=== PATIENT | female | born 2000 | race Hispanic/Latino ===

== ENCOUNTER 2022-04-29 00:04 | Emergency (ER) | payer OTHER, SELFPAY ==
[2022-04-29] MEDS ORDERED: Acetaminophen 500 MG TAB ONE (00:25)
[2022-04-29 00:45] LABS: #Monocytes 0.3 10x3/uL (0.0-1.1); #Neutrophils 7.6 10x3/uL (1.5-8.4); %Basophils 0.2 % (0.0-2.0); %Eosinophils 0.1 % (0.0-6.0); %Monocytes 3.8 % (0.0-10.0); %Neutrophils 86.6 % (40.0-75.0); Hemoglobin 13.4 g/dL (12.0-15.5); Mean Corpuscular HGB CONC 33.8 g/dL (32.0-36.0); Mean Corpuscular Hemoglobin 30.8 pg (27.0-33.0); Platelet Count 257 10x3/uL (150-450); RBC Distribution Width 12.3 % (11.5-14.5); Red Blood Cell (RBC) Count 4.35 10x6/uL (3.90-5.03); White Blood Cell (WBC) Count 8.8 10x3/uL (3.5-10.5)
[2022-04-29 00:47] LABS: Bilirubin Neg (Negative); Blood, Urine Negative (Negative); Clarity Clear (Clear); Glucose, Urine (Dipstick) Normal (Negative); Ketone, Urine 5 mg/dL (Negative); Leukocyte Negative (Negative); Nitrite Negative (Negative); Protein, Urine (Dipstick) Negative (Neg-Trace); Specific Gravity, Urine 1.015 (1.002-1.036); Urobilinogen Normal mg/dL (Less than 2)
[2022-04-29 01:00] LABS: ALT (SGPT) 19 U/L (8-55); AST (SGOT) 17 U/L (5-34); Alkaline Phosphatase 51 U/L (40-100); Anion Gap 15 mmol/L (10-20); BUN (Urea Nitrogen) 8 mg/dL (7.0-18.7); Bilirubin, Total 0.6 mg/dL (0.2-1.2); Calc. Creatinine Clearance 0 mL/min (70-130); Calcium 8.5 mg/dL (7.8-10.44); Carbon Dioxide 19 mmol/L (22-29); Chloride 105 mmol/L (98-107); Estimated GFR 134; Glucose 96 mg/dL (70-105); Potassium 3.6 mmol/L (3.5-5.1); Sodium 135 mmol/L (136-145)
[2022-04-29 01:19] LABS: SARS-CoV-2 NAA Rapid Test Not Detected (NotDetected)
== END 2022-04-29 01:37 | disposition home or self-care (01) ==
LOC: CSHERS 00:04
DX: B34.9 Viral infection, unspecified (principal); R53.81 Other malaise; M79.10 Myalgia, unspecified site; Z20.822 Contact with and (suspected) exposure to COVID-19
CPT/HCPCS: 80053; 81003; 85025; 96360; U0002

== ENCOUNTER 2022-06-10 11:01 | Emergency (ER) | payer BC, OTHER ==
[2022-06-10 12:00] LABS: Bilirubin Neg (Negative); Blood, Urine Negative (Negative); Clarity Clear (Clear); Glucose, Urine (Dipstick) Normal (Negative); Ketone, Urine Negative (Negative); Leukocyte 25 (Negative); Nitrite Negative (Negative); Protein, Urine (Dipstick) Negative (Neg-Trace); Urobilinogen Normal mg/dL (Less than 2)
[2022-06-10 12:09] LABS: Bacteria/HPF 3+ HPF (None Seen); RBC/HPF 0-3 HPF (0-3); WBC/HPF 0-3 HPF (0-3)
[2022-06-11 10:06] LABS: Chlamydia by PCR Not Detected (NotDetected); GC by PCR Not Detected (NotDetected)
== END 2022-06-10 13:45 | disposition home or self-care (01) ==
LOC: CSHERS 11:01
DX: O23.592 Infection of other part of genital tract in pregnancy, second trimester (principal); N98.9 Complication associated with artificial fertilization, unspecified; Z3A.18 18 weeks gestation of pregnancy
CPT/HCPCS: 76815; 81003; 81015; 87480; 87491; 87510; 87591; 87660

== ENCOUNTER 2022-08-23 02:22 | Day surgery (SDC) | payer BC, OTHER ==
[2022-08-23 02:51] VITALS: BMI 23.9
[2022-08-23] MEDS ORDERED: hydrALAZINE 20 MG/ML VIAL SLOW IVP PRN (03:30)
[2022-08-23 03:50] LABS: Bilirubin Neg (Negative); Blood, Urine Negative (Negative); Clarity Sl. Cloudy (Clear); Glucose, Urine (Dipstick) Normal (Negative); Ketone, Urine Negative (Negative); Leukocyte 25 (Negative); Nitrite Negative (Negative); Protein, Urine (Dipstick) Negative (Neg-Trace); Specific Gravity, Urine 1.015 (1.005-1.030); Urobilinogen Normal mg/dL (Less than 2); pH, Urine 6.5 (5.0-9.0)
[2022-08-23 04:06] LABS: Bacteria/HPF 3+ HPF (None Seen); Mucous/LPF 4+ LPF (<2+); RBC/HPF 0-3 HPF (0-3)
[2022-08-23 04:11] LABS: FFN Internal QC Analyzer PASS (PASS); FFN Internal QC Cassette PASS (PASS); Fetal Fibronectin Negative (Negative)
== END 2022-08-23 05:00 | disposition home or self-care (01) ==
LOC: CSHLD/OP 02:22
PROVIDERS: ATTEND Obstetrics & Gynecology
DX: O60.03 Preterm labor without delivery, third trimester (principal); Z3A.29 29 weeks gestation of pregnancy; O26.893 Other specified pregnancy related conditions, third trimester; R10.9 Unspecified abdominal pain; M79.10 Myalgia, unspecified site; Z79.899 Other long term (current) drug therapy; Z98.890 Other specified postprocedural states
CPT/HCPCS: 81001; 82731; 99284

== ENCOUNTER 2022-09-10 21:24 | Observation (INO) | payer BC, OTHER ==
[2022-09-10 21:59] VITALS: BMI 23.9
[2022-09-10] MEDS ORDERED: hydrALAZINE 20 MG/ML VIAL SLOW IVP PRN (22:45)
[2022-09-10 22:57] LABS: Bilirubin Neg (Negative); Blood, Urine 10 (Negative); CAUTI Indications for Culture Pregnancy; Clarity Clear (Clear); Glucose, Urine (Dipstick) Normal (Negative); Ketone, Urine Negative (Negative); Leukocyte 25 (Negative); Nitrite Negative (Negative); Protein, Urine (Dipstick) 15 mg/dl (Neg-Trace)
[2022-09-10] MEDS ORDERED: Lactated Ringer's 500 ML IV SCH (23:00)
[2022-09-10 23:35] LABS: Urine Culture Reflex Yes Yes
[2022-09-10 23:38] LABS: Bacteria/HPF None Seen HPF (None Seen); RBC/HPF 0-3 HPF (0-3); Squamous Epithelial 0-3 HPF (0-3); WBC/HPF 0-3 HPF (0-3)
[2022-09-10] MEDS: Betamet Acet/Betamet Na Ph 30 MG/5 ML VIAL IM SCH (23:43)
[2022-09-11] MEDS ORDERED: hydrALAZINE 20 MG/ML VIAL SLOW IVP PRN (00:29)
[2022-09-11] MEDS ORDERED: Promethazine HCl 25 MG/ML VIAL IM PRN (00:29)
[2022-09-11] MEDS ORDERED: Ondansetron PF 4 MG/2 ML Vial IVP PRN (00:29)
[2022-09-11] MEDS ORDERED: Terbutaline Sulfate 1 MG/ML VIAL SC SCH (00:30)
[2022-09-11] MEDS ORDERED: Penicillin G Potassium 5 MILL.UNITS VIAL ONE (00:32)
[2022-09-11] MEDS ORDERED: Penicillin G Potassium 5 MILL.UNITS in Sodium Chloride 0.9% 100 ML IVPB SCH (00:45)
[2022-09-11] MEDS: hydrOXYzine Pamoate 25 mg Capsule PO PRN ×2 (01:04→08:56)
[2022-09-11 02:13] LABS: Hemoglobin 10.4 g/dL (12.0-15.5); Mean Corpuscular HGB CONC 33.2 g/dL (32.0-36.0); Mean Corpuscular Hemoglobin 29.5 pg (27.0-33.0); Mean Corpuscular Volume 88.7 fl (81.6-98.3); Mean Platelet Volume 9.8 fl (7.4-10.4); Platelet Count 314 10x3/uL (150-450); RBC Distribution Width 11.7 % (11.5-14.5); Red Blood Cell (RBC) Count 3.53 10x6/uL (3.90-5.03); White Blood Cell (WBC) Count 13.4 10x3/uL (3.5-10.5)
[2022-09-11 02:45] LABS: Syphilis Antibody Nonreactive (Nonreactive); Syphilis Antibody Index 0.17 S/CO (<1.00 Non-Reactive)
[2022-09-11 02:46] LABS: HBSAg Index 0.23 S/CO (0-0.99); Hep B Surf Ag Non-Reactive S/CO (NonReactive)
[2022-09-11 03:02] LABS: SARS-CoV-2 NAA Rapid Test Not Detected (NotDetected)
[2022-09-11] MEDS: Penicillin G 2.5 MILL.units 2.5 MILL.UNITS in Premix Bag 1 BAG IVPB SCH ×3 (04:20→15:37)
[2022-09-11] MEDS ORDERED: Acetaminophen 500 MG TAB PO PRN (06:01)
[2022-09-11 09:19] LABS: Fetal Membranes Rupture No Membranes Rupture (No Rupture)
[2022-09-11 11:00] LABS: Chlamydia by PCR Not Detected (NotDetected); GC by PCR Not Detected (NotDetected)
[2022-09-11] MEDS: Lactated Ringer's 1,000 ML IV SCH ×3 (15:37→18:03)
[2022-09-11] MEDS: Betamet Acet/Betamet Na Ph 30 MG/5 ML VIAL IM SCH (23:13)
[2022-09-12 07:56] VITALS: TEMP 98.2
[2022-09-12 11:28] VITALS: BP 103/58
== END 2022-09-12 14:33 | disposition home or self-care (01) ==
LOC: CSHLD/OP 21:24 → INTOOBSV 09-11 00:54 → CSHLD 09-11 00:54 → CSHANTE 09-11 13:15
PROVIDERS: ADMIT Obstetrics & Gynecology; ATTEND Obstetrics & Gynecology
DX: O47.03 False labor before 37 completed weeks of gestation, third trimester (principal); Z3A.32 32 weeks gestation of pregnancy; Z20.822 Contact with and (suspected) exposure to COVID-19
CPT/HCPCS: 36415; 81001; 84112; 85027; 86780; 86850; 86900; 86901; 87081; 87086; 87340; 87480; 87491; 87510; 87591; 87660; 96372; 96374; 96375; 99285; G0378; J0702; J2405; J2540; J3105; J7120; Q0177; U0002

== ENCOUNTER 2022-09-17 18:22 | Day surgery (SDC) | payer BC, OTHER ==
[2022-09-17 19:14] VITALS: BMI 23.9
== END 2022-09-17 20:38 | disposition home or self-care (01) ==
LOC: CSHLD/OP 18:22
PROVIDERS: ATTEND Obstetrics & Gynecology
DX: O99.891 Other specified diseases and conditions complicating pregnancy (principal); R42 Dizziness and giddiness; O99.013 Anemia complicating pregnancy, third trimester; D64.9 Anemia, unspecified; Z3A.33 33 weeks gestation of pregnancy
CPT/HCPCS: 99282

== ENCOUNTER 2022-09-21 07:20 | Emergency (ER) | payer BC, OTHER ==
[2022-09-21 08:15] LABS: SARS-CoV-2 NAA Rapid Test Not Detected (NotDetected)
== END 2022-09-21 08:00 | disposition home or self-care (01) ==
LOC: CSHERS 07:20
DX: O98.513 Other viral diseases complicating pregnancy, third trimester (principal); J11.1 Influenza due to unidentified influenza virus with other respiratory manifestations; Z3A.33 33 weeks gestation of pregnancy; Z20.822 Contact with and (suspected) exposure to COVID-19
CPT/HCPCS: 99283

== ENCOUNTER 2022-10-19 23:04 | Day surgery (SDC) | payer BC, OTHER ==
[2022-10-19] MEDS ORDERED: hydrALAZINE 20 MG/ML VIAL SLOW IVP PRN (23:35)
[2022-10-19] MEDS ORDERED: Lactated Ringer's 1,000 ML IV SCH (23:45)
== END 2022-10-20 04:34 | disposition home or self-care (01) ==
LOC: CSHLD/OP 23:04
PROVIDERS: ATTEND Obstetrics & Gynecology
DX: O47.1 False labor at or after 37 completed weeks of gestation (principal); Z3A.37 37 weeks gestation of pregnancy

== ENCOUNTER 2022-10-20 23:20 | Inpatient (IN) | payer BC, OTHER ==
[2022-10-21] MEDS ORDERED: hydrALAZINE 20 MG/ML VIAL SLOW IVP PRN ×3 (00:22→07:36)
[2022-10-21] MEDS ORDERED: Butorphanol Tartrate 1 MG/ML VIAL SLOW IVP PRN (00:22)
[2022-10-21] MEDS ORDERED: Lactated Ringer's 1,000 ML IV SCH ×2 (00:30→00:45)
[2022-10-21] MEDS ORDERED: Ibuprofen 800 MG TAB PO PRN (00:43)
[2022-10-21] MEDS ORDERED: Promethazine HCl 25 MG/ML VIAL IM PRN ×2 (00:43→01:31)
[2022-10-21] MEDS ORDERED: Misoprostol 200 MCG TAB PR PRN (00:43)
[2022-10-21] MEDS ORDERED: Ondansetron PF 4 MG/2 ML Vial IVP PRN ×3 (00:43→07:36)
[2022-10-21] MEDS ORDERED: Lidocaine 1% (PF) 30 ML VIAL SC PRN (00:43)
[2022-10-21] MEDS ORDERED: Carboprost 250 MCG/ML AMP IM PRN (00:43)
[2022-10-21] MEDS ORDERED: Diphenoxylate HCl/Atropine Tablet PO PRN ×2 (00:43)
[2022-10-21] MEDS ORDERED: Methylergonovine 0.2 MG/ML VIAL IM PRN (00:43)
[2022-10-21] MEDS ORDERED: NS w/ Oxytocin 30 units 500 ML IV SCH ×2 (00:45→07:45)
[2022-10-21] MEDS ORDERED: Fentanyl 2 mcg/Bup 0.1% Cadd 100 ML ONE (00:58)
[2022-10-21 01:05] LABS: Hemoglobin 11.3 g/dL (12.0-15.5); Mean Corpuscular HGB CONC 33.4 g/dL (32.0-36.0); Mean Corpuscular Hemoglobin 28.7 pg (27.0-33.0); Mean Corpuscular Volume 85.8 fl (81.6-98.3); Mean Platelet Volume 10.4 fl (7.4-10.4); Platelet Count 281 10x3/uL (150-450); RBC Distribution Width 13.5 % (11.5-14.5); Red Blood Cell (RBC) Count 3.94 10x6/uL (3.90-5.03); White Blood Cell (WBC) Count 10.1 10x3/uL (3.5-10.5)
[2022-10-21] MEDS ORDERED: diphenhydrAMINE 50 MG/ML VIAL IVP PRN (01:31)
[2022-10-21] MEDS ORDERED: Acetaminophen 325 MG TAB PO PRN ×2 (01:31→12:22)
[2022-10-21] MEDS ORDERED: Moisturizing Cream (Eucerin) 113 GM JAR TOP PRN (01:31)
[2022-10-21] MEDS ORDERED: Lactated Ringer's 500 ML IV PRN (01:31)
[2022-10-21] MEDS ORDERED: ePHEDrine Sulfate 50 MG/10 ML VIAL SLOW IVP PRN (01:31)
[2022-10-21] MEDS ORDERED: Naloxone HCl 0.4 mg/ml Vial IVP PRN ×2 (01:31)
[2022-10-21 01:42] LABS: HBSAg Index 0.16 S/CO (0-0.99); Hep B Surf Ag Non-Reactive S/CO (NonReactive)
[2022-10-21 01:44] LABS: Syphilis Antibody Nonreactive (Nonreactive); Syphilis Antibody Index 0.04 S/CO (<1.00 Non-Reactive)
[2022-10-21] MEDS ORDERED: Communication Order-Pharmacy FS SCH (01:45)
[2022-10-21] MEDS ORDERED: Fentanyl 2 mcg/Bupivacaine 0.1% Cassette 100 ML EPIDURAL SCH (01:45)
[2022-10-21 03:07] LABS: HIV (1/2) Antibody/Antigen Non-Reactive (NonReactive)
[2022-10-21] MEDS ORDERED: diphenhydrAMINE 25 MG CAP PO PRN (07:36)
[2022-10-21] MEDS ORDERED: Boostrix 0.5 ML (Tdap) VIAL (>/=7 yrs of age) IM ONE (07:36)
[2022-10-21] MEDS ORDERED: Preparation H Ointment 28 GM TUBE PR PRN (07:36)
[2022-10-21] MEDS ORDERED: Milk Of Magnesia 30 ML UDCUP PO PRN (07:36)
[2022-10-21] MEDS ORDERED: Lanolin Ointment 7 GM TUBE TOP PRN (07:36)
[2022-10-21] MEDS ORDERED: Bisacodyl 10 MG SUPP PR PRN (07:36)
[2022-10-21] MEDS ORDERED: Misoprostol 200 MCG TAB VAG PRN (07:36)
[2022-10-21] MEDS ORDERED: Benzocaine-Menthol 82.5 ML CAN TOP PRN (07:36)
[2022-10-21] MEDS ORDERED: Bupivacaine 0.25% HCL 30 ML VIAL ONE (08:00)
[2022-10-21 08:23] VITALS: BMI 25.7
[2022-10-21 08:53] LABS: SARS-CoV-2 NAA Rapid Test Not Detected (NotDetected)
[2022-10-21] MEDS: Ibuprofen 800 MG TAB PO PRN ×2 (13:11→21:50)
[2022-10-21] MEDS: Prenatal Vitamin 1 TAB PO SCH (14:27)
[2022-10-21] MEDS: Docusate 100 MG CAP PO SCH ×2 (14:27→21:50)
[2022-10-21] MEDS: Ferrous Sulfate 325 MG TAB PO SCH (14:27)
[2022-10-22] MEDS ORDERED: traMADol HCl 50 MG TAB PO PRN ×2 (02:00)
[2022-10-22] MEDS ORDERED: Zolpidem Tartrate 5 MG TAB PO PRN (02:00)
[2022-10-22] MEDS ORDERED: HYDROcodone/Acetaminophen 5/325 mg Tablet PO PRN (02:00)
[2022-10-22 03:45] LABS: Hemoglobin 9.7 g/dL (12.0-15.5); Mean Corpuscular HGB CONC 33.3 g/dL (32.0-36.0); Mean Corpuscular Volume 86.9 fl (81.6-98.3); Mean Platelet Volume 10.6 fl (7.4-10.4); Platelet Count 237 10x3/uL (150-450); RBC Distribution Width 13.7 % (11.5-14.5); Red Blood Cell (RBC) Count 3.35 10x6/uL (3.90-5.03); White Blood Cell (WBC) Count 11.2 10x3/uL (3.5-10.5)
[2022-10-22] MEDS: Ibuprofen 800 MG TAB PO PRN (05:03)
[2022-10-22 07:56] VITALS: BP 96/56; TEMP 98.5
[2022-10-22] MEDS: Ferrous Sulfate 325 MG TAB PO SCH ×2 (07:57→09:10)
[2022-10-22] MEDS: Prenatal Vitamin 1 TAB PO SCH (09:10)
[2022-10-22] MEDS: Docusate 100 MG CAP PO SCH (09:10)
== END 2022-10-22 15:00 | disposition home or self-care (01) | DRG 807 ==
LOC: CSHLD/OP 23:20 → CSHLD 10-21 00:46 → CSHPP 10-21 09:50
PROVIDERS: ADMIT Obstetrics & Gynecology; ATTEND Obstetrics & Gynecology
PROC: 10E0XZZ Delivery of Products of Conception, External Approach (ICD-10-PCS; principal; 2022-10-21)
DX: O76 Abnormality in fetal heart rate and rhythm complicating labor and delivery (principal); Z37.0 Single live birth; Z3A.37 37 weeks gestation of pregnancy; Z20.822 Contact with and (suspected) exposure to COVID-19
CPT/HCPCS: 51702; 85027; 86780; 86850; 86900; 86901; 87340; 87389; 99285; J2590; S0020; U0002

== ENCOUNTER 2023-02-19 10:10 | Emergency (ER) | payer BC, OTHER ==
[2023-02-19 10:39] LABS: Bilirubin Neg (Negative); Blood, Urine 150 (Negative); Clarity Clear (Clear); Glucose, Urine (Dipstick) Normal (Negative); Ketone, Urine Negative (Negative); Leukocyte 25 (Negative); Nitrite Negative (Negative); Protein, Urine (Dipstick) 15 mg/dl (Neg-Trace); Urobilinogen Normal mg/dL (Less than 2)
[2023-02-19 10:43] LABS: Pregnancy Test - Urine (BHCG) Negative (Negative); Pregu Control Background? CLEAR/WHITE (CLR/WHITE); Pregu Control Bar Appear? YES (CONTROL BAR)
[2023-02-19 10:59] LABS: Bacteria/HPF 1+ HPF (None Seen); Mucous/LPF 1+ LPF (<2+); RBC/HPF 0-3 HPF (0-3); Squamous Epithelial 0-3 HPF (0-3); WBC/HPF 0-3 HPF (0-3)
[2023-02-20 13:01] LABS: Chlamydia by PCR, Vaginal Swab Not Detected (NotDetected); GC by PCR, Vaginal Swab Not Detected (NotDetected); Tric.vaginalis PCR,Vaginal Sw Not Detected (NotDetected)
== END 2023-02-19 11:14 | disposition home or self-care (01) ==
LOC: CSHERS 10:10
DX: N76.0 Acute vaginitis (principal)
CPT/HCPCS: 81003; 81015; 81025; 87086; 87491; 87591; 87661; 99283

== ENCOUNTER 2023-04-15 09:59 | Emergency (ER) | payer BC, OTHER ==
[2023-04-15 10:53] LABS: Bilirubin Neg (Negative); Blood, Urine 10 (Negative); Clarity Slightly Cloudy (Clear); Glucose, Urine (Dipstick) Normal (Negative); Ketone, Urine Negative (Negative); Leukocyte 100 (Negative); Nitrite Negative (Negative); Protein, Urine (Dipstick) Negative (Neg-Trace); Specific Gravity, Urine 1.015 (1.005-1.030); Urobilinogen Normal mg/dL (Less than 2)
[2023-04-15 11:10] LABS: Bacteria/HPF 1+ HPF (None Seen); CAUTI Indications for Culture Pelvic or flank pain; RBC/HPF 0-3 HPF (0-3)
[2023-04-15 11:11] LABS: Urine Culture Reflex No No
[2023-04-15] MEDS ORDERED: cefTRIAXone (ROCEPHIN) 500 MG VIAL ONE (12:24)
[2023-04-15] MEDS ORDERED: Lidocaine 1% MPF 2 ML VIAL ONE (12:25)
[2023-04-16 01:25] LABS: Chlamydia by PCR, Vaginal Swab *Indeterminate (NotDetected); GC by PCR, Vaginal Swab *Indeterminate (NotDetected)
== END 2023-04-15 12:53 | disposition home or self-care (01) ==
LOC: CSHERS 09:59
DX: O99.619 Diseases of the digestive system complicating pregnancy, unspecified trimester (principal); O99.891 Other specified diseases and conditions complicating pregnancy; O23.40 Unspecified infection of urinary tract in pregnancy, unspecified trimester; N39.0 Urinary tract infection, site not specified; Z3A.00 Weeks of gestation of pregnancy not specified
CPT/HCPCS: 76705; 76856; 81001; 87480; 87491; 87510; 87591; 87660; 96372; J0696

== ENCOUNTER 2023-08-11 13:56 | Emergency (ER) | payer BC, OTHER ==
[~2023-08-11 13:56] MED LIST: Iopamidol 300 61% 100 ML VIAL FS ONE
[2023-08-11] MEDS ORDERED: HYDROcodone/Acetaminophen 5/325 mg Tablet ONE (15:21)
[2023-08-11] MEDS ORDERED: Ondansetron PF 4 MG/2 ML Vial ONE (15:21)
[2023-08-11 15:49] LABS: #Basophils 0.1 10x3/uL (0.0-0.2); #Eosinphils 0.2 10x3/uL (0.0-0.5); #Monocytes 0.6 10x3/uL (0.0-1.1); #Neutrophils 5.7 10x3/uL (1.5-8.4); %Basophils 0.5 % (0.0-2.0); %Eosinophils 1.7 % (0.0-6.0); %Lymphocytes 32.5 % (18.0-47.0); %Monocytes 5.7 % (0.0-10.0); %Neutrophils 59.3 % (40.0-75.0); Hematocrit 41.7 % (34.9-44.5); Hemoglobin 13.7 g/dL (12.0-15.5); Mean Corpuscular HGB CONC 32.9 g/dL (32.0-36.0); Mean Corpuscular Hemoglobin 31.3 pg (27.0-33.0); Mean Corpuscular Volume 95.2 fl (81.6-98.3); Mean Platelet Volume 9.9 fl (7.4-10.4); Platelet Count 331 10x3/uL (150-450); RBC Distribution Width 11.9 % (11.5-14.5); Red Blood Cell (RBC) Count 4.38 10x6/uL (3.90-5.03); White Blood Cell (WBC) Count 9.6 10x3/uL (3.5-10.5)
[2023-08-11 15:50] LABS: Bilirubin Neg (Negative); Blood, Urine Negative (Negative); Clarity Cloudy (Clear); Glucose, Urine (Dipstick) Normal (Negative); Ketone, Urine Negative (Negative); Leukocyte Negative (Negative); Nitrite Negative (Negative); Protein, Urine (Dipstick) Negative (Neg-Trace); Urobilinogen Normal mg/dL (Less than 2)
[2023-08-11 16:02] LABS: BHCG - Serum Negative (NEGATIVE); Pregs Control Background? CLEAR/WHITE (CLR/WHITE); Pregs Control Bar Appear? YES (CONTROL BAR)
[2023-08-11 16:08] LABS: ALT (SGPT) 20 U/L (8-55); AST (SGOT) 18 U/L (5-34); Albumin 4.5 g/dL (3.5-5.0); Alkaline Phosphatase 60 U/L (40-110); Anion Gap 13 mmol/L (10-20); BUN (Urea Nitrogen) 12 mg/dL (7.0-18.7); Bilirubin, Total 0.4 mg/dL (0.2-1.2); Calc. Creatinine Clearance 0 mL/min (70-130); Calcium 9.2 mg/dL (7.8-10.44); Carbon Dioxide 25 mmol/L (22-29); Chloride 105 mmol/L (98-107); Estimated GFR 127; Globulin 3.1 g/dL (2.4-3.5); Glucose 80 mg/dL (70-105); Lipase 13 U/L (8-78); Protein, Total 7.6 g/dL (6.0-8.3); Sodium 139 mmol/L (136-145)
[2023-08-11 16:13] LABS: SARS-CoV-2 NAA Rapid Test Not Detected (NotDetected)
[2023-08-11 16:37] LABS: Bacteria/HPF 1+ HPF (None Seen); CAUTI Indications for Culture Pelvic or flank pain; Epithelial Cast 0-3 LPF (None Seen); Renal Epithelial 0-3 HPF (None Seen); Transitional Epithelial 0-3 HPF (None Seen)
[2023-08-11 16:38] LABS: Urine Culture Reflex No No
[2023-08-11] MEDS ORDERED: cefTRIAXone (ROCEPHIN) 500 MG VIAL ONE (17:45)
[2023-08-11] MEDS ORDERED: Lidocaine 1% (PF) 30 ML VIAL ONE (17:46)
== END 2023-08-11 18:18 | disposition home or self-care (01) ==
LOC: CSHERS 13:56
DX: N39.0 Urinary tract infection, site not specified (principal); A74.9 Chlamydial infection, unspecified; M79.10 Myalgia, unspecified site; R11.0 Nausea; Z20.822 Contact with and (suspected) exposure to COVID-19
CPT/HCPCS: 74177; 80053; 81001; 83690; 84703; 85025; 88304; 93005; 96372; 96374; J0171; J0694; J0696; J1100; J2001; J2175; J2250; J2405; J2704; J3010; J3490; S0020; U0002

== ENCOUNTER 2023-09-11 20:48 | Emergency (ER) | payer BC, OTHER ==
[2023-09-11 22:21] LABS: SARS-CoV-2 NAA Rapid Test DETECTED (NotDetected)
== END 2023-09-11 22:45 | disposition home or self-care (01) ==
LOC: CSHERS 20:48
DX: U07.1 COVID-19 (principal); F17.290 Nicotine dependence, other tobacco product, uncomplicated
CPT/HCPCS: 99283

== ENCOUNTER 2024-06-16 01:14 | Emergency (ER) | payer BC, OTHER ==
[2024-06-16 02:55] LABS: Influenza A by NAA Not Detected (NotDetected); Influenza B by NAA Not Detected (NotDetected); SARS-CoV-2 NAA Rapid Test DETECTED (NotDetected)
== END 2024-06-16 03:03 | disposition home or self-care (01) ==
LOC: CSHERS 01:14
DX: U07.1 COVID-19 (principal); J06.9 Acute upper respiratory infection, unspecified; F17.290 Nicotine dependence, other tobacco product, uncomplicated
CPT/HCPCS: 71046; 93005